=== PATIENT | female | born 1990 ===

== ENCOUNTER → 2022-08-02 | Outpatient (CLI) | payer BC | LOC: LAB SHORT 11:52 → PLD 11:52 | DX: L91.8 Other hypertrophic disorders of the skin (principal) | CPT/HCPCS: 88304 ==

== ENCOUNTER → 2023-04-26 | Outpatient (CLI) | payer BC | LOC: LAB SHORT 07:48 → LAB 07:48 → PLD 07:48 | DX: R87.810 Cervical high risk human papillomavirus (HPV) DNA test positive (principal) | CPT/HCPCS: 88305; 88342 ==

== ENCOUNTER → 2023-09-02 | Outpatient (CLI) | payer BC ==
[2023-09-02 16:59] LABS: Source, Urine Clean Catch
[2023-09-02 17:47] LABS: Appearance, Urine Cloudy (Clear); Bilirubin, Urine Neg (Neg); Blood, Urine Neg (Neg); Color, Urine Yellow (P-Yellow); Glucose Qualitative, Urine Neg (Neg); Ketones, Urine 1+ (Neg); Leukocyte Esterase, Urine Neg (Neg); Nitrite, Urine Neg (Neg); Protein, Urine 1+ (Neg); Urobilinogen, Urine NORM (Normal)
[2023-09-02 18:07] LABS: Amorphous Mod (0-Heavy); Bacteria Many /hpf; Calcium Oxalate Crystals Few /hpf; Red Blood Cells, Urine 0-2 /hpf (0-2); Squamous Epithelial Cells Few /hpf (Few)
[2023-09-02 18:22] LABS: BASOPHILS ABSOLUTE AUTO 0.04 K/mm3 (0.00-0.23); BASOPHILS PERCENT AUTO 0 % (0-2); EOSINOPHILS ABSOLUTE AUTO 0.07 K/mm3 (0.00-0.68); EOSINOPHILS PERCENT AUTO 1 % (0-6); Hematocrit 36.6 % (33.0-51.0); Hemoglobin 12.4 g/dL (11.5-16.0); IMMATURE GRAN ABSOLUTE AUTO 0.03 K/mm3 (0.00-0.10); IMMATURE GRAN PERCENT AUTO 0 % (0-1); LYMPHOCYTES ABSOLUTE AUTO 2.53 K/mm3 (0.84-5.20); LYMPHOCYTES PERCENT AUTO 22 % (21-46); MONOCYTES ABSOLUTE AUTO 0.55 K/mm3 (0.16-1.47); MONOCYTES PERCENT AUTO 5 % (4-13); Mean Corpuscular HGB 31.6 pg (26.0-34.0); Mean Corpuscular HGB Conc 33.9 g/dL (31.5-36.5); Mean Corpuscular Volume 93 fL (80-100); Mean Platelet Volume 12.9 fL (9.1-12.4); NEUTROPHILS ABSOLUTE AUTO 8.43 K/mm3 (1.96-9.15); NEUTROPHILS PERCENT AUTO 72 % (41-73); Platelet Count 296 K/mm3 (150-400); RDW Coefficient Variation 13.2 % (11.7-14.2); RDW Standard Deviation 45.1 fL (35.1-46.3); Red Blood Cell Count 3.93 M/mm3 (3.80-5.20); White Blood Cell Count 11.65 K/mm3 (4.00-11.30)
[2023-09-05 15:36] LABS: HEPATITIS B SURFACE ANTIGEN Negative (Negative)
[2023-09-06 09:21] LABS: HEPATITIS C AB CIA INTERP Negative (Negative); HEPATITIS C ANTIBODY CIA INDEX 0.09 IV
[2023-09-06 10:21] LABS: HIV 1,2 COMBO ANTIGEN/ANTIBODY Negative (Negative)
== END ==
LOC: LAB 16:56 → LAB SHORT 16:56
PROVIDERS: Registered Nurse Community Health
DX: Z34.91 Encounter for supervision of normal pregnancy, unspecified, first trimester (principal); Z3A.00 Weeks of gestation of pregnancy not specified
CPT/HCPCS: 81001; 84443; 86803; 87086; 87340; 87389

== ENCOUNTER → 2023-09-06 | Outpatient (CLI) | payer BC ==
[2023-09-09 04:20] LABS: APTIMA MEDIA TYPE Urine; C. TRACHOMATIS BY TMA Negative (Negative); N. GONORRHOEAE BY TMA Negative (Negative); SPECIMEN SOURCE Urine
== END ==
LOC: LAB SHORT 11:44 → LAB 11:44
PROVIDERS: Registered Nurse Community Health
DX: R73.03 Prediabetes (principal)
CPT/HCPCS: 83036; 87491; 87591

== ENCOUNTER 2024-03-12 06:55 | Inpatient (IN) | payer BC ==
[2024-03-12] VITALS (27 sets, daily range): BP systolic 116–150; BP diastolic 59–95
[~2024-03-12] VITALS: Ht 157.5 cm; Wt 92.5 kg
[2024-03-12] MEDS ORDERED: METF500 PO (07:39)
[2024-03-12] MEDS ORDERED: Lactated Ringer's 1,000 ML IV PRN (07:45)
[2024-03-12] MEDS ORDERED: Bupivacaine 0.5% HCl 5 MG/ML 30MLVIAL XX SCH (07:45)
[2024-03-12] MEDS ORDERED: Oxytocin 10 Unit / ML Vial IM SCH (07:45)
[2024-03-12] MEDS ORDERED: Lidocaine HCl 1% 30 ML SDV XX SCH (07:45)
[2024-03-12] MEDS ORDERED: Methylergonovine Maleate 0.2MG / ML 1ML Amp IM SCH (07:45)
[2024-03-12] MEDS ORDERED: FentaNYL 2mcg/ml-Bup 0.1% Epd 250 ML EPI PRN (07:45)
[2024-03-12] MEDS ORDERED: Lactated Ringer's 1,000 ML IV SCH ×3 (07:45)
[2024-03-12] MEDS ORDERED: Bupivacaine HCl 2.5 MG/ML 10ML P/F Injection XX SCH (07:45)
[2024-03-12] MEDS ORDERED: ePHEDrine Sulfate 50 MG/ML 1ML Injection XX PRN (07:45)
[2024-03-12] MEDS ORDERED: Misoprostol 200 MCG Tab PR SCH (07:45)
[2024-03-12] MEDS ORDERED: Castor Oil 59.146 ML BTL TOP SCH (07:45)
[2024-03-12] MEDS ORDERED: LR Oxytocin 20 Units 1,000 ML IV SCH ×3 (07:45)
[2024-03-12 07:53] LABS: BASOPHILS ABSOLUTE AUTO 0.03 K/mm3 (0.00-0.23); BASOPHILS PERCENT AUTO 0 % (0-2); EOSINOPHILS ABSOLUTE AUTO 0.04 K/mm3 (0.00-0.68); EOSINOPHILS PERCENT AUTO 0 % (0-6); Hematocrit 32.6 % (33.0-51.0); IMMATURE GRAN ABSOLUTE AUTO 0.04 K/mm3 (0.00-0.10); IMMATURE GRAN PERCENT AUTO 0 % (0-1); LYMPHOCYTES ABSOLUTE AUTO 1.57 K/mm3 (0.84-5.20); LYMPHOCYTES PERCENT AUTO 16 % (21-46); MONOCYTES ABSOLUTE AUTO 0.44 K/mm3 (0.16-1.47); MONOCYTES PERCENT AUTO 5 % (4-13); Mean Corpuscular HGB 29.6 pg (26.0-34.0); Mean Corpuscular HGB Conc 33.7 g/dL (31.5-36.5); Mean Corpuscular Volume 88 fL (80-100); Mean Platelet Volume 12.2 fL (9.1-12.4); NEUTROPHILS ABSOLUTE AUTO 7.64 K/mm3 (1.96-9.15); NEUTROPHILS PERCENT AUTO 78 % (41-73); Platelet Count 226 K/mm3 (150-400); RDW Coefficient Variation 13.8 % (11.7-14.2); RDW Standard Deviation 44.2 fL (35.1-46.3); Red Blood Cell Count 3.71 M/mm3 (3.80-5.20); White Blood Cell Count 9.76 K/mm3 (4.00-11.30)
[2024-03-12] MEDS ORDERED: FentaNYL Citrate 50 MCG/ML 2 ML Injection IV PRN (12:35)
[2024-03-12] MEDS ORDERED: Ondansetron HCl 2 MG / ML 2ML Vial IV PRN (12:35)
[2024-03-12] MEDS ORDERED: Calcium Carbonate 500 MG Tab Chew PO PRN (12:35)
[2024-03-12] MEDS ORDERED: Acetaminophen 500 MG Tab PO PRN (12:35)
[2024-03-12] MEDS ORDERED: MetFORMIN HCl 500 mg PO ONE (13:00)
[2024-03-12] MEDS ORDERED: Misoprostol 200 MCG Tab PO ONE (16:58)
[2024-03-13] VITALS (25 sets, daily range): BP systolic 107–149; BP diastolic 57–92
[2024-03-13] MEDS ORDERED: Lidocaine 2% 5 ML SDV ONE (08:41)
--- NOTE | 2024-03-13 16:43 | NUR ---
STILL SEWING PATIENT COMFORTABLE BLEEDING WNL
[2024-03-13] MEDS ORDERED: Lactated Ringer's 1,000 ML IV SCH (17:30)
[2024-03-13] MEDS ORDERED: Oxytocin 10 Unit / ML Vial IM ONE (17:30)
[2024-03-13] MEDS ORDERED: Lanolin Cream TOP PRN (17:30)
[2024-03-13] MEDS ORDERED: Measles/Mumps/Rubella Vaccine 0.5 ML Vial SC ONE (17:30)
[2024-03-13] MEDS ORDERED: Rho(D) Immune Globulin 300 MCG / SYR IM ONE (17:30)
[2024-03-13] MEDS ORDERED: Misoprostol 200 MCG Tab PR PRN (17:35)
[2024-03-13] MEDS ORDERED: OxyCODONE 5 mg/Acetamin 325 mg TABLET PO PRN (17:35)
[2024-03-13] MEDS ORDERED: Ibuprofen 400 MG Tab PO PRN (17:35)
[2024-03-13] MEDS ORDERED: Witch Hazel/Glycerin PADS TOP PRN (17:35)
[2024-03-13] MEDS ORDERED: LR Oxytocin 20 Units 1,000 ML IV SCH (17:35)
[2024-03-13] MEDS ORDERED: Acetaminophen 325 MG TABLET PO PRN (17:40)
[2024-03-13] MEDS ORDERED: Docusate Sodium 100 MG Cap PO PRN (17:40)
[2024-03-13] MEDS ORDERED: Acetaminophen/Codeine 300-30 mg PO PRN (17:40)
[2024-03-13] MEDS ORDERED: Diphth,Pertuss(Acell),Tet Vac 0.5 ML VIAL IM ONE (17:40)
[2024-03-13] MEDS ORDERED: Methylergonovine Maleate 0.2MG / ML 1ML Amp IM PRN (17:40)
[2024-03-13] MEDS ORDERED: Benzocaine Topical Anesthetic Spray 60GM TOP PRN (17:40)
[2024-03-13] MEDS ORDERED: Ketorolac Tromethamine 30mg Vial IV ONE (18:00)
[2024-03-13] MEDS ORDERED: Ketorolac Tromethamine 30mg Vial IV PRN (18:00)
--- NOTE | 2024-03-13 18:11 | NUR ---
LEGS STILL NUMB VOIDED IN BED
--- NOTE | 2024-03-13 18:53 | NUR ---
UNABLE TO LIFT LEG, VOIDED WHILE IN BED AND JAMILAH CARE DONE
[2024-03-13 20:07] LABS: Hematocrit 29.8 % (33.0-51.0); Hemoglobin 10.1 g/dL (11.5-16.0); Mean Corpuscular HGB Conc 33.9 g/dL (31.5-36.5); Mean Corpuscular Volume 88 fL (80-100); Mean Platelet Volume 12.5 fL (9.1-12.4); Platelet Count 220 K/mm3 (150-400); RDW Coefficient Variation 13.9 % (11.7-14.2); RDW Standard Deviation 44.7 fL (35.1-46.3); Red Blood Cell Count 3.37 M/mm3 (3.80-5.20); White Blood Cell Count 19.76 K/mm3 (4.00-11.30)
[2024-03-13 20:28] LABS: International Normalized Ratio 0.99; Prothrombin Time Results 10.6 Sec (9.7-11.5)
[2024-03-14 00:37] VITALS: BP 124/64
[2024-03-14 02:29] VITALS: BP 124/72
[2024-03-14 04:48] VITALS: BP 128/70
[2024-03-14 07:23] LABS: Hematocrit 23.9 % (33.0-51.0); Mean Corpuscular HGB 29.3 pg (26.0-34.0); Mean Corpuscular HGB Conc 33.5 g/dL (31.5-36.5); Mean Corpuscular Volume 88 fL (80-100); Mean Platelet Volume 12.3 fL (9.1-12.4); Platelet Count 187 K/mm3 (150-400); RDW Coefficient Variation 14.2 % (11.7-14.2); RDW Standard Deviation 44.4 fL (35.1-46.3); Red Blood Cell Count 2.73 M/mm3 (3.80-5.20); White Blood Cell Count 13.94 K/mm3 (4.00-11.30)
[2024-03-14 07:51] LABS: International Normalized Ratio 1.02; Prothrombin Time Results 10.9 Sec (9.7-11.5)
[2024-03-14 08:46] VITALS: BP 114/71
[2024-03-14] MEDS ORDERED: Prenatal Vit/FE Fumarate/FA 1 Tab PO SCH (09:00)
[2024-03-14 11:30] VITALS: BP 118/64
[2024-03-14 17:17] VITALS: BP 130/67
== END 2024-03-14 18:20 | disposition home or self-care (01) | DRG 806 ==
LOC: OBS 06:55 → BC 07:30
PROVIDERS: ADMIT Registered Nurse Community Health
PROC: 10E0XZZ Delivery of Products of Conception, External Approach (ICD-10-PCS; principal; 2024-03-13)
PROC: 10H07YZ Insertion of Other Device into Products of Conception, Via Natural or Artificial Opening (ICD-10-PCS; 2024-03-13)
PROC: 10907ZC Drainage of Amniotic Fluid, Therapeutic from Products of Conception, Via Natural or Artificial Opening (ICD-10-PCS; 2024-03-13)
PROC: 3E0R3BZ Introduction of Anesthetic Agent into Spinal Canal, Percutaneous Approach (ICD-10-PCS; 2024-03-13)
PROC: 00HU33Z Insertion of Infusion Device into Spinal Canal, Percutaneous Approach (ICD-10-PCS; 2024-03-13)
PROC: 0KQM0ZZ Repair Perineum Muscle, Open Approach (ICD-10-PCS; 2024-03-13)
DX: O24.420 Gestational diabetes mellitus in childbirth, diet controlled (principal); O72.1 Other immediate postpartum hemorrhage; O70.1 Second degree perineal laceration during delivery; O76 Abnormality in fetal heart rate and rhythm complicating labor and delivery; Z37.0 Single live birth; Z3A.39 39 weeks gestation of pregnancy; Z79.899 Other long term (current) drug therapy; Z79.84 Long term (current) use of oral hypoglycemic drugs
CPT/HCPCS: 36415; 51702; 82947; 85025; 85027; 85384; 85610; 85730; 86850; 86900; 86901; A9270; J1885; J2210; J2590; J7120